=== PATIENT | male | born 1980 | race Caucasian/White ===

== ENCOUNTER 2024-03-05 13:01 | Emergency (ER) | payer BC, SELFPAY ==
[2024-03-05 13:03] VITALS: BMI 27.0
[2024-03-05 13:04] VITALS: BP 153/79
[2024-03-05 13:12] LABS: Glucose - Point of Care 322 mg/dl (70-99)
[2024-03-05 13:29] LABS: % Basophils 0.6 % (0-2); % Eosinophils 0.8 % (0-6); % Immature Granulocytes 0.4 % (0-0.5); % Monocytes 5.7 % (1.7-9.3); % Neutrophils 77.5 % (42.2-75.2); Absolute Basophils 0.1 10^3/uL (0-0.2); Absolute Eosinophils 0.1 10^3/uL (0-0.7); Absolute Immature Granulocytes 0.1 10^3/uL (0-0.05); Absolute Lymphocytes 1.9 10^3/uL (1.2-3.4); Absolute Monocytes 0.7 10^3/uL (0.1-0.6); Hematocrit 41.2 % (39.0-52.0); Hemoglobin 14.4 g/dL (13.0-18.0); Mean Corpuscular Hgb 29.2 pg (27.0-31.0); Mean Corpuscular Volume 83.6 fL (80.0-94.0); Mean Platelet Volume 10.7 fL (7.4-10.4); Nucleated Red Blood Cells % 0 % (-); Platelet Count 295 10^3/uL (130-400); Red Blood Cell Count 4.93 10^6/uL (4.70-6.10); Red Cell Dist. Width 12.7 % (11.5-14.5); White Blood Cell Count 12.9 10^3/uL (4.8-10.8)
[2024-03-05 13:42] LABS: ALT (SGPT) 37 U/L (0-50); AST (SGOT) 25 U/L (17-59); Albumin 5.1 g/dl (3.5-5.0); Alkaline Phosphatase 98 U/L (38-126); Blood Urea Nitrogen 13 mg/dl (9-20); Calcium 10.6 mg/dl (8.4-10.2); Carbon Dioxide 19 mmol/L (22-30); Chloride 108 mmol/L (98-107); Estimated Creatinine Clearance 107 ml/min; Glucose 354 mg/dl (70-99); Potassium 5.6 mmol/L (3.5-5.1); Sodium 142 mmol/L (135-145); Total Bilirubin 0.7 mg/dl (0.2-1.3); Total Protein 7.9 g/dl (6.3-8.2); eGFR > 60.00
--- NOTE | 2024-03-05 13:59 | ED.GENMED ---
History of Present Illness
General
Chief Complaint: Abdominal Symptoms
Time Seen by Provider: 03/05/24 13:41
Travel History
Have you had any contact with someone who has COVID-19?: No
Do you have any symptoms of coronavirus? Fever > 100 degrees, chills, cough, shortness of breath, sore throat, loss of taste or smell, muscle aches, or headache?: No
History of Present Illness
History of Present Illness:
43-year-old male history of type 2 diabetes presenting with epigastric abdominal pain with associated nausea starting this morning. Patient denies vomiting, chest pain, shortness of breath, cough, or urinary symptoms. Patient states that he had 4
cheese lasagna last night. Patient denies any alcohol use. Patient denies any known gallstones. Patient states that this happened once few years ago, was evaluated in the ER and had negative workup. Patient states that his glucose has been
elevated for 'quite some time'. Patient states that he has an endocrinology appointment scheduled. Patient denies diarrhea. Family at bedside states that patient sweat through his sheets last night.
Past History
Past History
ED Past Medical History: Hypercholesterolemia and NIDDM
ED Past Surgical History: Cardiac (Mitral Valve Repair)
Social History
Tobacco: Smoker
Alcohol: Former
Drug: Marijuana
Living: with family
Phy Exam
Physical Exam
Physical Exam:
General: Alert, no acute distress
Head: NCAT
Eyes: clear conjunctiva
Neck: supple
Cardiac: regular rate and rhythm, no murmur
Lungs: clear to auscultation bilaterally. No wheezes, rales, or rhonchi. Speaking full unlabored sentences. No respiratory distress.
Abdomen: soft, nondistended nontender. No rebound or guarding.
MSK: no lower extremity edema bilaterally. No deformity
Skin: warm, dry. Not diaphoretic
Neuro: Alert and oriented x3. no focal deficits
Course
Orders/Labs/Results
Orders:
Orders
03/05/24 13:04
EKG [Electrocardiogram (*1)] Urgent
Reason for Study: Fatigue / Weakness
EKG- Treatment ONCE
03/05/24 13:13
CBC/With Diff [Complete Blood Count/With Diff] Urgent
CMP [Comprehensive Metabolic Panel] Urgent
Lipase Urgent
03/05/24 13:58
0.9% Sodium Chloride 1000 ml [Nss] 1,000 ml IV BOLUS
Famotidine [Pepcid] 20 mg IV NOW STA
Mag Hydrox/Al Hydrox/Simeth [Maalox] 30 ml PO NOW STA
Ondansetron Injectable [Zofran] 4 mg IV NOW STA
03/05/24 14:04
Add On- LAB Urgent
Tests Added?: lipase
03/05/24 16:39
UA Reflex to Culture [Urinalysis Reflex To Culture] Urgent
Date Specimen was Collected: 03/05/24
Time Specimen was Collected: 14:05
Abnormal Lab Results
03/05/24 03/05/24 03/05/24
13:11 13:13 16:39
WBC 12.9 H 10^3/uL
(4.8-10.8)
MPV 10.7 H fL
(7.4-10.4)
Abs Immat Gran (auto) 0.1 H 10^3/uL
(0-0.05)
Absolute Neuts (auto) 10.0 H 10^3/uL
(1.4-6.5)
Absolute Monos (auto) 0.7 H 10^3/uL
(0.1-0.6)
Neutrophils % 77.5 H %
(42.2-75.2)
Lymphocytes % 15.0 L %
(20.5-51.1)
Potassium 5.6 H mmol/L
(3.5-5.1)
Chloride 108 H mmol/L
(98-107)
Carbon Dioxide 19 L mmol/L
(22-30)
Glucose 354 H mg/dl
(70-99)
Calcium 10.6 H mg/dl
(8.4-10.2)
Albumin 5.1 H g/dl
(3.5-5.0)
Urine Ketones 3+ A
(Negative)
Urine Glucose 3+ A
(Negative)
POC Glucose 322 H mg/dl
(70-99)
03/05/24 13:13
03/05/24 13:13
Vital Signs
Initial and Last Documented VS:
Initial Vital Signs
Temp Pulse Resp BP Pulse Ox
97.8 F 70 16 153/79 100
03/05/24 13:04 03/05/24 13:04 03/05/24 13:04 03/05/24 13:04 03/05/24 13:04
Last Documented Vital Signs
Temp Pulse Resp BP Pulse Ox
97.8 F 69 18 148/89 99
03/05/24 13:04 03/05/24 16:15 03/05/24 16:15 03/05/24 16:00 03/05/24 16:15
MDM/Problems Addressed
MDM/Problems Addressed:
Patient presents to the Emergency Department with ___ abdominal pain, nausea
Number and Complexity of Problems Addressed at the Encounter
� Chronic conditions affecting care: DM
� Acute Exacerbation and/or Progression of Chronic Illness:
� Differential Diagnosis includes: Pancreatitis, gastritis, DKA, hyperglycemia, UTI, gastroparesis
Amount and/or Complexity of Data to be Reviewed and Analyzed
� I performed an independent evaluation of and my interpretation is:
EKG: SR at 62bpm with [place] 144 QTc 477 no acute ischemic changes, no peaked t waves
CT:
Xrays:
Laboratory Studies: anion gap 15, not in DKA. WBC 12.9 most likely reactive from vomiting. LFTs/lipase within normal limits. Potassium 5.6 likely hemolyzed.
Other:
� Review of other/old records reveals:
� Clinical information was obtained by an independent historian:
� Prescriptions/Medications Considered but not given:
� Further testing considered but not performed:
Risk of Complications and/or Morbidity or Mortality of Patient Management
� Social Determinants of health affecting care:
� Discussion with other providers (PCP, Hospitalists, Consultants, etc):
� Escalation of care including admission/observation vs risk of discharge considered: 43yoM hx DM on lantus nightly presenting with abdominal pain, nausea, vomiting starting this morning. Abdomen soft nondistended nontender on exam. Labs
unrevealing, not in DKA. Received 1L NS. Tolerating PO in ER with no episodes of vomiting. Hemodynamically stable. Patient reports improvement in symptoms. Advised follow up with endocrinology for better glycemic control, GI for possible
gastroparesis. Discussed return precautions. Patient expressed verbal understanding.
*Critical Care Note
Total Time (30-74mins, 75-104mins- exclusive of procedures): Not Applicable
ED Attending Note
-
Portions of this chart may have been created with voice recognition software.� Occasional wrong word or��sound alike� substitutions may have occurred due to the inherent limitations of voice recognition software.
Discharge Plan
Departure
Patient Disposition: Home (Routine Discharge)
Date of Disposition: 03/05/24
Time of Disposition: 17:14
Patient with high blood pressure during this ER visit?: Yes
Discharge Problem:
Nausea & vomiting
Prescriptions:
New
ondansetron 4 mg tablet,disintegrating
4 mg PO Q6H PRN (Reason: nausea and vomiting) Qty: 20 0RF
No Action
atorvastatin 20 MG tablet
20 mg PO DAILY
glimepiride 1 MG tablet
1 mg PO DAILY
paroxetine HCl 30 MG tablet
30 mg PO DAILY
dulaglutide [Trulicity] 0.75 MG/0.5 ML pen injector
0.75 mg SC CAMPBELL
omeprazole magnesium [Prilosec OTC] 20 MG tablet,delayed release (DR/EC)
20 mg PO DAILY Qty: 30 0RF
Referrals:
Josi Gonzalez MD [Active] -
UNKNOWN - PT DOES,NOT KNOW [Family Provider] -
Activity Restrictions/Additional Instructions:
Take Zofran every 6 hours as needed for nausea/vomiting
Follow up with endocrinology in 1-2 days. Follow up with gastroenterology as needed
Return to the emergency department for fever, inability to tolerate liquids, or new/worsening symptoms
Interventions
Interventions:
*Risk Screen - Suicide Last Done: 03/05/24 13:04
*General Assessment Last Done: 03/05/24 13:04
*Neglect/Abuse Screening Last Done: 03/05/24 13:04
ED- Fall Risk Assessment Last Done: 03/05/24 13:22
*ED COVID-19 Vaccine History Last Done: 03/05/24 13:37
*Nursing Disposition Last Done: 03/05/24 17:25
KP-Pygkfb-Egvhczdqst Assessment Last Done: 03/05/24 13:22
Discharge Date and Time
Discharge Date/Time: 03/05/24 17:26
Print Language: WOLOF
[2024-03-05 14:00] VITALS: BP 157/93
[2024-03-05] MEDS: MAALOX 30 ML PO (14:08)
[2024-03-05] MEDS: ZOFRAN 4 MG IV (14:08)
[2024-03-05] MEDS: PEPCID 20 MG IV (14:08)
[2024-03-05] MEDS: NSS 1000 IV (14:09)
[2024-03-05 14:19] LABS: Lipase 143 U/L (23-300)
[2024-03-05 15:00] VITALS: BP 149/83
[2024-03-05 16:00] VITALS: BP 148/89
[2024-03-05 16:55] LABS: Urine Albumin Negative (Neg - Trace); Urine Bilirubin Negative (Negative); Urine Character Clear (Clear); Urine Color Yellow; Urine Glucose 3+ (Negative); Urine Ketone 3+ (Negative); Urine Leukocyte Negative (Negative); Urine Nitrite Negative (Negative); Urine Occult Blood Negative (Negative); Urine Specific Gravity 1.005 (<1.030); Urine Urobilinogen Negative (Neg - 1+)
== END 2024-03-05 17:26 | disposition home or self-care (01) ==
LOC: EMR 13:01
PROVIDERS: EMERGENCY PHYSICIAN Emergency Medicine
DX: R11.2 Nausea with vomiting, unspecified (principal); R10.13 Epigastric pain; R03.0 Elevated blood-pressure reading, without diagnosis of hypertension; E11.9 Type 2 diabetes mellitus without complications; E78.00 Pure hypercholesterolemia, unspecified; F17.200 Nicotine dependence, unspecified, uncomplicated; Z88.8 Allergy status to other drugs, medicaments and biological substances
CPT/HCPCS: 99284; 96374; 96375; 80053; 81003; 82962; 83690; 85025; 93005